=== PATIENT | female | born 1950 | race Caucasian/White ===

== ENCOUNTER 2023-06-30 08:09 | Day surgery (SDC) | payer MEDICARE, BC ==
[2023-06-23 14:27] LABS: BASOPHILS # (AUTO) 0.1 X10'3 (0-0.2); BASOPHILS % (AUTO) 1.3 % (0-1); EOSINOPHILS # (AUTO) 0.4 X10'3 (0-0.9); EOSINOPHILS % (AUTO) 3.2 % (0-6); LYMPHOCYTES # (AUTO) 3.2 X10'3 (1.1-4.8); LYMPHOCYTES % (AUTO) 28.4 % (21-51); MEAN CORPUSCULAR HEMOGLOBIN 29.7 PG (27.0-31.0); MEAN CORPUSCULAR HGB CONC 34.1 g/dL (33.0-36.5); MEAN CORPUSCULAR VOLUME 87.2 FL (78-98); MEAN PLATELET VOLUME 8.1 FL (7.4-10.4); MONOCYTES # (AUTO) 0.9 X10'3 (0-0.9); MONOCYTES % (AUTO) 7.8 % (2-12); NEUTROPHILS # (AUTO) 6.6 X10'3 (1.8-7.7); NEUTROPHILS % (AUTO) 59.3 % (42-75); PRE OP HEMATOCRIT 37.4 % (35.0-45.0); PRE OP HEMOGLOBIN 12.8 g/dL (12.0-16.0); PRE OP PLATELET COUNT 285 X10'3 (140-440); PRE OP WHITE BLOOD COUNT 11.1 10'3 (4.8-10.8); RED BLOOD COUNT 4.29 X10'6 (4.20-5.60); RED CELL DISTRIBUTION WIDTH 13.4 % (11.5-14.5)
[2023-06-23 14:53] LABS: ALBUMIN 3.7 G/DL (3.4-5.0); ALBUMIN/GLOBULIN RATIO 0.9 (1.1-1.5); ALKALINE PHOSPHATASE 63 IU/L (46-116); BLOOD UREA NITROGEN 23 MG/DL (7-18); BUN/CREATININE RATIO 21.3 (10.0-20.0); CALCIUM 9.3 MG/DL (8.5-10.1); CHLORIDE 104 MMOL/L (99-107); CREATININE 1.08 MG/DL (0.40-0.90); PRE OP ALT 20 U/L (30-65); PRE OP ANION GAP 10 (8-16); PRE OP AST 19 U/L (10-37); PRE OP BILIRUB, TOTAL 0.3 MG/DL (0.0-1.0); PRE OP GLUCOSE 151 MG/DL (70-104); PRE OP POTASSIUM 3.5 MMOL/L (3.4-5.1); PRE OP SODIUM 138 MMOL/L (135-145); TOTAL CARBON DIOXIDE 23.7 MMOL/L (24-32); TOTAL PROTEIN 7.7 G/DL (6.4-8.2); eGFR 50 ML/MIN
[2023-06-30] VITALS (8 sets, daily range): BP systolic 123–158; BP diastolic 61–71; PULSE 63–76; RESP 12–16; TEMP 97.1; O2SAT 97–98
[~2023-06-30] VITALS: Ht 165.1 cm; Wt 77.7 kg
[~2023-06-30 08:09] MED LIST: AMA1T PO; ASPI-611 PO; ATOR20TA66 PO; BUPIVAcaine/PF 2.5 mg/ml (0.25%) 30ml vial ONE; CHOL10008 PO; CHOL5POW PO; HYDR25TA4 PO; LISI20TA28 PO; LOPE1TAB46 PO; METF-900 PO; [UNRECOGNIZED DRUG - OTHER] PO; cefazolin 2gm/D5W 100mL 100 ML IV ONE; famotidine 20mg tablet PO ONE; ringers solution, lacted 1,000 ML IV SCH
[2023-06-30] MEDS ORDERED: fentaNYL/PF 50MCG/1 ML 2ML syringe ONE (10:08)
[2023-06-30] MEDS ORDERED: midazolam 1 mg/ML 2ml injection ONE (10:08)
[2023-06-30] MEDS ORDERED: ketamine 50mg/5ml syringe ONE (10:54)
--- NOTE | 2023-06-30 11:12 | NUR ---
Received from OR via [facility], accompanied by Anesthesiologist and report given by [facility] Anesthesiologist. PATIENT WAKING UP, DENIES PAIN, V/S WNL, PIV 20G TO LEFT HAND, RIGHT WRIST DRESSING CDI. ICE AND ELEVATED RUE. Addendum: 06/30/23 at 1137 by Gabriele Red RN Amended: Links added.
--- NOTE | 2023-06-30 11:52 | NUR ---
ALL DISCHARGE CRITERIA HAS BEEN MET. VSS, PAIN AT A TOLERABLE LEVEL, ABLE TO SAFELY AMBULATE AND TRANSFER SELF. IV TAKEN OUT WITHOUT ANY COMPLICATIONS. ALL DISCHARGE INSTRUCTIONS COVERED WITH PATIENT AND ALL QUESTIONS ANSWERED. PATIENT TAKEN OUT VIA WHEELCHAIR WITH ALL BELONGINGS TO PERSONAL VEHICLE WHERE FAMILY DROVE PATIENT HOME. Addendum: 06/30/23 at 1210 by Gabriele Red RN Amended: Links added.
== END 2023-06-30 11:52 | disposition home or self-care (01) ==
LOC: PAS 08:09
PROVIDERS: ATTEND Orthopaedic Surgery Hand Surgery
DX: M65.331 Trigger finger, right middle finger (principal); I10 Essential (primary) hypertension; E11.9 Type 2 diabetes mellitus without complications; Z90.49 Acquired absence of other specified parts of digestive tract; Z79.899 Other long term (current) drug therapy; Z79.82 Long term (current) use of aspirin; Z79.84 Long term (current) use of oral hypoglycemic drugs; Z87.891 Personal history of nicotine dependence; Z82.49 Family history of ischemic heart disease and other diseases of the circulatory system
CPT/HCPCS: 26055; 36415; 80053; 82948; 85025; 93005; J0690; J2250; J3010; J3490; J7030; J7120; Z7506; Z7512; A4215

== ENCOUNTER 2023-08-04 05:31 | Day surgery (SDC) | payer MEDICARE, BC ==
[2023-07-28 14:25] LABS: BASOPHILS # (AUTO) 0.1 X10'3 (0-0.2); BASOPHILS % (AUTO) 0.8 % (0-1); EOSINOPHILS # (AUTO) 0.5 X10'3 (0-0.9); EOSINOPHILS % (AUTO) 4.6 % (0-6); LYMPHOCYTES # (AUTO) 2.8 X10'3 (1.1-4.8); LYMPHOCYTES % (AUTO) 28.2 % (21-51); MEAN CORPUSCULAR HEMOGLOBIN 29.3 PG (27.0-31.0); MEAN CORPUSCULAR HGB CONC 33.5 g/dL (33.0-36.5); MEAN CORPUSCULAR VOLUME 87.4 FL (78-98); MEAN PLATELET VOLUME 8.1 FL (7.4-10.4); MONOCYTES # (AUTO) 0.7 X10'3 (0-0.9); MONOCYTES % (AUTO) 7.2 % (2-12); NEUTROPHILS # (AUTO) 5.9 X10'3 (1.8-7.7); NEUTROPHILS % (AUTO) 59.2 % (42-75); PRE OP HEMATOCRIT 35.8 % (35.0-45.0); PRE OP PLATELET COUNT 261 X10'3 (140-440); RED BLOOD COUNT 4.09 X10'6 (4.20-5.60)
[2023-07-28 14:40] LABS: ALBUMIN 3.7 G/DL (3.4-5.0); ALKALINE PHOSPHATASE 67 IU/L (46-116); BLOOD UREA NITROGEN 23 MG/DL (7-18); CALCIUM 9.5 MG/DL (8.5-10.1); CHLORIDE 104 MMOL/L (99-107); CREATININE 0.96 MG/DL (0.40-0.90); PRE OP ALT 26 U/L (30-65); PRE OP ANION GAP 9 (8-16); PRE OP AST 20 U/L (10-37); PRE OP BILIRUB, TOTAL 0.4 MG/DL (0.0-1.0); PRE OP GLUCOSE 92 MG/DL (70-104); PRE OP POTASSIUM 3.5 MMOL/L (3.4-5.1); PRE OP SODIUM 139 MMOL/L (135-145); TOTAL CARBON DIOXIDE 25.9 MMOL/L (24-32); TOTAL PROTEIN 7.5 G/DL (6.4-8.2); eGFR 57 ML/MIN
[~2023-08-04] VITALS: Ht 165.1 cm; Wt 79.0 kg
[~2023-08-04 05:31] MED LIST changes: -BUPIVAcaine/PF 2.5 mg/ml (0.25%) 30ml vial ONE; -[UNRECOGNIZED DRUG - OTHER] PO; -ringers solution, lacted 1,000 ML IV SCH
[2023-08-04 06:15] VITALS: BP 161/57; PULSE 68; RESP 16; TEMP 97; O2SAT 99
[2023-08-04] MEDS ORDERED: BUPIVAcaine/PF 2.5 mg/ml (0.25%) 30ml vial ONE (06:38)
[2023-08-04] MEDS: ringers solution, lacted 1,000 ML IV SCH ×2 (07:00→09:09)
[2023-08-04] MEDS ORDERED: fentaNYL/PF 50MCG/1 ML 2ML syringe ONE (08:05)
[2023-08-04] MEDS ORDERED: midazolam 1 mg/ML 2ml injection ONE (08:05)
[2023-08-04] MEDS ORDERED: LIDOcaine 0.5% (5mg/ml) 50ml vial ONE (08:16)
[2023-08-04] MEDS ORDERED: ketorolac trometh. 30mg/ml inj. ONE (08:16)
[2023-08-04 08:36] VITALS: BP 171/78; PULSE 71; RESP 16; O2SAT 99
--- NOTE | 2023-08-04 08:36 | NUR ---
Received from OR via [facility], accompanied by Anesthesiologist DR. MANCERA and report given by Anesthesiolgist. LEFT WRIST DRESSING CDI. RIGHT HAND 20G PIV WITH LR INFUSING AT 20ML/HR. DENIES PAIN. VSS. ICE APPLIED.
[2023-08-04 08:46] VITALS: BP 165/66; PULSE 64; RESP 15; O2SAT 98
[2023-08-04 08:56] VITALS: BP 169/68; PULSE 52; RESP 15; O2SAT 97
[2023-08-04 09:06] VITALS: BP 183/64; PULSE 50; RESP 13; O2SAT 98
[2023-08-04 09:16] VITALS: BP 164/64; PULSE 58; RESP 15; O2SAT 98
--- NOTE | 2023-08-04 09:26 | NUR ---
PATIENT MEETS DISCHARGE CRITERIA FROM RECOVERY. DENIES PAIN. ICE IN PLACE. DISCHARGE INSTRUCTIONS UNDERSTOOD AND REVIEWED WITH DAUGHTERARTEM. PIV REMOVED WITHOUT COMPLICATIONS. LEFT WRIST DRESSING CDI. PATIENT TRANSPORTED VIA WHEELCHAIR TO PRIVATE VEHICLE WHERE DAUGHTER, ARTEM, TRANSPORTED PATIENT HOME WITH ALL BELONGINGS AND DISCHARGE INSTRUCTIONS.
== END 2023-08-04 09:26 | disposition home or self-care (01) ==
LOC: PAS 05:31
PROVIDERS: ATTEND Orthopaedic Surgery Hand Surgery
DX: M65.342 Trigger finger, left ring finger (principal); M72.0 Palmar fascial fibromatosis [Dupuytren]; I10 Essential (primary) hypertension; E11.9 Type 2 diabetes mellitus without complications; E66.9 Obesity, unspecified; Z68.28 Body mass index [BMI] 28.0-28.9, adult; Z79.84 Long term (current) use of oral hypoglycemic drugs; Z79.899 Other long term (current) drug therapy; Z87.891 Personal history of nicotine dependence; Z98.890 Other specified postprocedural states; Z81.1 Family history of alcohol abuse and dependence; Z82.49 Family history of ischemic heart disease and other diseases of the circulatory system
CPT/HCPCS: 26055; 26121; 36415; 80053; 82948; 85025; J0690; J1885; J2250; J3010; J3490; J7030; J7120; Z7506; Z7512; A4215; A6449